=== PATIENT | female | born 1965 | race African-American/Black ===

== ENCOUNTER 2016-07-04 14:25 | Inpatient (IN) | payer SELFPAY ==
--- NOTE | 2016-07-04 14:41 | DR.GENAD ---
HPI - PCP Primary Care Physician: darrick - Complaint/Symptoms Chief Complaint Doctors Comments: Patient is being treated for a conjunctivitis with cipro opthalmic drops. His exam revealed pre septal cellulitis right eye with out restriction in motion. Dr Robles opthalmologist states the patient minimal preseptal cellulitis of the right orbit. No pupillary abnormality Chief Complaint:: patient has a eye infection that has been there since friday. dr robles ( eye doctor ) wanted her to come here to get a periorbital ct. - Source History Provided: Patient - Mode of Arrival Mode of Arrival: Ambulatory - Timing Onset of Chief Complaint: 06/29/16 PMH - PMH Past Medical History: Yes Past Medical History: Diabetes, Hypertension Past Surgical History: Yes Surgical History: Tonsillectomy - Family History History of Family Medical Conditions: Yes Family Medical History: Diabetes Mellitus, [place], Hypertension - Social History Does patient currently use any type of tobacco product: Yes Have you used tobacco products in the last 12 months: Yes Type of Tobacco Use: None Does any household member use tobacco: No Alcohol Use: None Do you use any recreational Drugs:: No Lives With: Family - infectious screening In the last 2 months have you had wt loss of >10#?: NO Have you had fever, night sweats or hemotysis?: No Have you traveled outside the country in the last 6 months?: No Isolation: Standard ROS - Review of Systems Eyes: See HPI ENTM: No Symptoms Reported Respiratoy: No Symptoms Reported Cardiovascular: No Symptoms Reported Gastrointestinal/Abdominal: No Symptoms Reported Genitourinary: No Symptoms Reported Neurological: No Symptoms Reported Musculoskeletal: No Symptoms Reported Integumentary: No Symptoms Reported Hematologic/Lymphatic: No Symptoms Reported Endocrine: No Symptoms Reported Psychiatric: No Symptoms Reported All Other Systems: Reviewed and Negative PE - Vital Signs Vitals: Temperature 98.6 F Pulse Rate 72 Respiratory Rate 18 Blood Pressure [Left Arm] 197/91 Blood Pressure [Right Arm] 235/107 Blood Pressure 178/75 O2 Sat by Pulse Oximetry 100 - General Limitations: No Limitations General Appearance: Alert, In No Apparent Distress - Head Head Exam: Normal Inspection, Atraumatic - Eyes Eye exam: Normal Appearance, PERRL, EOMI, Periorbital Swelling (Right Eye:There is extensive right periorbital subcutaneous edema and peripheral stranding suggestive of cellulitis.The gloves appear symmetrical without significant proptosis or intraorbital inflammatory changes. Extra ocular muscles appear becca. Mimimal mucosal thickening at the 4 of the maxillary sinuses. Imprssion : Extensive right periorbital subcutaneous edema and stranding suggestive of cellulitis. No evidence of intraorbital inflammatory of abnormqality of the right globe.). negative: Periorbital Tenderness - ENT ENT Exam: Normal Exam External Ear Exam: Normal External Inspection TM/Canal Exam: Bilateral Normal Nose Exam: Normal Nose Exam Mouth Exam: Normal Inspection Throat Exam: Normal Inspection - Neck Neck Exam: Normal Inspection - Chest Chest Inspection: Normal Inspection - Respiratory Respiratory Exam: Normal Lung Sounds Bilat Respiratory Exam: Bilateral Clear to Auscultation - Cardiovascular Cardiovascular Exam: Regular Rate, Normal Rhythm - Abdominal Exam Abdominal Exam: Normal Inspection Abdominal Tenderness: negative: RUQ, RLQ, LUQ, LLQ, Epigastrium, Suprapubic, Diffuse, Mild, Moderate, Severe, Other - Extremities Extremities Exam: Normal Inspection, Full ROM - Back Back Exam: Normal Inspection, Full ROM - Neurologic Neurological Exam: Alert, Oriented X3, CN II-XII Intact - Psychiatric Psychiatric Exam: Normal Affect, Normal Mood - Skin Skin Exam: Warm, Dry, Intact Course - Reevaluation 1st: Unchanged - Consultation Called: 16:20 (Agreed to admit for further evaluation) ROR - XRAY XRAY Interpreted by: Radiologist (Extensive right periorbital subcutaneous edema and stranding suggestive of cellulitis. No evidence of intraorbital inflammation or abnormality of the right globe.) - Diagnosis Discharge Problem: Orbital cellulitis, right - Discharge Plan Condition: Stable - Follow ups/Referrals Follow ups/Referrals: CHUY ALCALA [Primary Care Provider] - 3 days - Instructions
--- NOTE | 2016-07-04 16:10 | CT ---
HISTORY: Right eye cellulitis Study: CT orbits without contrast Comparison: None Technique: Multiple axial images of the facial structures were obtained. Dose reduction techniques including Automated Exposure Control (AEC) and adjustment of mA and kV were utilized. Findings: The visualized intracranial structures are unremarkable. There is extensive right periorbital subcut aneous edema and peripheral stranding suggestive of cellulitis. Evaluation for abscess is limited by lack of IV contrast on this exam. The globes appear symmetrical without significant proptosis or in traorbital inflammatory changes. Extra-ocular muscles appear normal. Minimal mucosal thickening at t he 4 of the maxillary sinuses. Otherwise the paranasal sinuses and mastoid air cells are clear. The visualized skull base and cervical spine are normal. IMPRESSION: 1. Extensive right periorbital subcutaneous edema and stranding suggestive of cellulitis. No evidenc e of intraorbital inflammation or abnormality of the right globe. Evaluation for abscess limited by lack of IV contrast. Reported By:
[2016-07-04] MEDS ORDERED: MOTRIN TAB 600 MG PO PRN (17:14)
[2016-07-04] MEDS ORDERED: PHENERGAN TAB 25 MG PO PRN (17:14)
[2016-07-04] MEDS ORDERED: NORCO 7.5/325 MG TAB PO PRN (17:35)
[2016-07-04] MEDS ORDERED: ZOFRAN INJ 4 MG VIAL 16 MG, ATIVAN INJ 2 MG VIAL 1 MG, DECADRON INJ 10 MG in NS 50 ML I... IV PRN (17:35)
--- NOTE | 2016-07-04 17:39 | DR.H&P ---
Addendum entered and electronically signed by KIMBERLY SHAVER 07/05/16 15:34: 51 BLACK FEMALE Original Note: H&P - History & Physical for Day of: H&P Date: 07/04/16 - Chief Complaint Chief Complaint: RIGHT EYE PAIN, SWELLING - Allergies Allergies/Adverse Reactions: Allergies Allergy/AdvReac Type Severity Reaction Status Date / Time Penicillins AdvReac HIVES Verified 07/04/16 14:26 - History of Present Illness History of Present Illness: 51 WF ADMITTED FROM ER AFTER BEING SENT FROM DR STEPHEN MONTES OPT. EXAM WITH LOCALIZED REDNESS, PERORBITAL EDEMA AND MILD REDNESS TO LEFT CONJUCTIVA. PT DENIES ANY INJURY, FEVER, N/V. PLAN TO ADMIT FOR IV ATBX AND PAIN CONTROL - Past Medical History Past Medical History: Diabetes, Hypertension - Past Surgical History Surgical History: Tonsillectomy - Family History Family Medical History: Diabetes Mellitus, [place], Hypertension - Social History Does patient currently use any type of tobacco product: Yes Have you used tobacco products in the last 12 months: Yes Type of Tobacco Use: None Does any household member use tobacco: No Alcohol Use: None - Medications Home Medications: Carvedilol [Coreg Tab 3.125 mg] 25 mg PO BID 07/04/16 [History Confirmed ] - Review of Systems Constitutional: No Symptoms Reported Eyes: Pain, Vision Change, Conjunctivae Inflammation, Eyelid Inflammation, Redness, Other (RIGHT PERIORBITAL EDEMA) ENT: Nose Discharge Respiratory: No Symptoms Reported Cardiovascular: No Symptoms Reported Gastrointestinal: No Symptoms Reported Genitourinary: No Symptoms Reported Musculoskeletal: No Symptoms Reported Skin: No Symptoms Reported Neurological: No Symptoms Reported Oriented: Normal Eyes: Discharge, Pain, Redness Ear: Normal Nose: Normal Throat: Normal Respiratory: Clear Throughout Cardiovascular: Normal : Normal Auscultation: Bowel Sounds: Normal Palpation: Normal Tenderness: Normal Skin: Red (SEE EYE, RIGHT PERIORBITAL CELLULITIS), Tender Musculoskeletal: Normal Mood Description: Calm Speech Pattern: Clear, Appropriate - Assessment/Plan (1) Orbital cellulitis, right Status: Acute Plan: ADMIT, IV ATBX. REPEAT AM LABS (2) Corneal abrasion of both eyes Qualifiers: Encounter type: initial encounter Qualified Code(s): S05.01XA - Injury of conjunctiva and corneal abrasion without foreign body, right eye, initial encounter; S05.02XA - Injury of conjunctiva and corneal abrasion without foreign body, left eye, initial encounter Status: Acute (3) Uncontrolled hypertension Status: Acute Plan: COREG 25MG PO BID CONTINUE, START NORVASC 5MG PO DAILY
[2016-07-04 17:54] LABS: BASOPHILS % (AUTO) 0.1 % (0.2-1.0); EOSINOPHILS # (AUTO) 0.1 x10^3/uL (0.0-0.2); HEMATOCRIT 36.6 % (36.0-47.0); HEMOGLOBIN 11.8 g/dL (12.0-16.0); LYMPHOCYTES # (AUTO) 2.9 X10^3/uL (1.3-2.9); LYMPHOCYTES % (AUTO) 24.8 % (21.0-51.0); MEAN CORPUSCULAR HEMOGLOBIN 28.5 pg (27.0-34.0); MEAN CORPUSCULAR HGB CONC 32.2 g/dL (33.0-35.0); MEAN CORPUSCULAR VOLUME 88.5 fL (80.0-100.0); MEAN PLATELET VOLUME 10.4 fL (7.4-11.0); NEUTROPHILS # (AUTO) 7.8 x10^3/uL (2.2-4.8); NEUTROPHILS % (AUTO) 66.1 % (42.0-75.0); PLATELET COUNT 351 X10^3/uL (150.0-450.0); RED BLOOD COUNT 4.13 X10^6/uL (3.5-5.4); RED CELL DISTRIBUTION WIDTH 14.1 % (11.6-16.5); WHITE BLOOD COUNT 11.9 X10^3/uL (3.6-10.0)
[2016-07-04 18:06] LABS: ALANINE AMINOTRANSFERASE 21 Units/L (12-78); ALBUMIN 3.6 g/dL (3.4-5.0); ALKALINE PHOSPHATASE 82 Units/L (46-116); ASPARTATE AMINO TRANSFERASE 15 Units/L (15-37); BLOOD UREA NITROGEN 13 mg/dL (7-18); CALCIUM 8.8 mg/dL (8.5-10.1); CARBON DIOXIDE 27.6 mmol/L (21-32); CHLORIDE 105 mmol/L (98-107); COR NA(FOR HYPERGLY) 145 mmol/L (136-145); CREATININE 0.79 mg/dL (0.55-1.02); GLUCOSE 199 mg/dL (65-99); SODIUM 143 mmol/L (136-145); TOTAL PROTEIN 8.4 g/dL (6.4-8.2); eGFR BLACK RACES > 60 (>60); eGFR NON BLACK RACES > 60 (>60)
[2016-07-04] MEDS ORDERED: NS 1/2 1000 ML IV 1,000 ML IV ONE (20:47)
[2016-07-04] MEDS: COREG TAB 25 MG PO SCH (20:56)
[2016-07-04] MEDS: NORVASC TAB 5 MG PO SCH (20:56)
[2016-07-04] MEDS: NS 1/2 1000 ML IV 1,000 ML IV SCH (20:57)
[2016-07-04] MEDS ORDERED: COREG TAB 3.125 MG PO SCH (21:00)
[2016-07-04] MEDS ORDERED: CLEOCIN 300 MG IV PREMIX 300 MG/50 ML BAG IV ONE (21:04)
[2016-07-04] MEDS: CLEOCIN VIAL 600 MG 300 MG in D5W 50 ML IV 50 ML IV SCH (21:10)
[2016-07-05] MEDS: NS 1/2 1000 ML IV 1,000 ML IV SCH ×4 (02:25→21:06)
[2016-07-05] MEDS ORDERED: CLEOCIN 300 MG IV PREMIX 300 MG/50 ML BAG IV ONE (02:36)
[2016-07-05] MEDS ORDERED: NS 1/2 1000 ML IV 1,000 ML IV ONE ×2 (05:14→15:03)
[2016-07-05] MEDS: CLEOCIN VIAL 600 MG 300 MG in D5W 50 ML IV 50 ML IV SCH ×3 (05:21→21:06)
[2016-07-05 06:28] LABS: ALANINE AMINOTRANSFERASE 18 Units/L (12-78); ALBUMIN 3.1 g/dL (3.4-5.0); ALKALINE PHOSPHATASE 73 Units/L (46-116); ASPARTATE AMINO TRANSFERASE 13 Units/L (15-37); BLOOD UREA NITROGEN 10 mg/dL (7-18); CALCIUM 8.2 mg/dL (8.5-10.1); CARBON DIOXIDE 28.1 mmol/L (21-32); CHLORIDE 106 mmol/L (98-107); COR CA(FOR HYPOALB) 8.9 mg/dL (8.5-10.1); COR NA(FOR HYPERGLY) 144 mmol/L (136-145); CREATININE 0.69 mg/dL (0.55-1.02); GLUCOSE 140 mg/dL (65-99); SODIUM 143 mmol/L (136-145); TOTAL PROTEIN 7.5 g/dL (6.4-8.2); eGFR BLACK RACES > 60 (>60); eGFR NON BLACK RACES > 60 (>60)
[2016-07-05 07:10] LABS: BASOPHILS % (AUTO) 0.3 % (0.2-1.0); EOSINOPHILS # (AUTO) 0.2 x10^3/uL (0.0-0.2); EOSINOPHILS % (AUTO) 1.4 % (0.9-2.9); HEMATOCRIT 32.5 % (36.0-47.0); HEMOGLOBIN 10.7 g/dL (12.0-16.0); LYMPHOCYTES # (AUTO) 3.7 X10^3/uL (1.3-2.9); LYMPHOCYTES % (AUTO) 29.7 % (21.0-51.0); MEAN CORPUSCULAR HEMOGLOBIN 28.8 pg (27.0-34.0); MEAN CORPUSCULAR HGB CONC 32.9 g/dL (33.0-35.0); MEAN CORPUSCULAR VOLUME 87.5 fL (80.0-100.0); MEAN PLATELET VOLUME 10.5 fL (7.4-11.0); MONOCYTES # (AUTO) 0.9 x10^3/uL (0.3-0.8); MONOCYTES % (AUTO) 7.6 % (0.0-13.0); NEUTROPHILS # (AUTO) 7.6 x10^3/uL (2.2-4.8); PLATELET COUNT 322 X10^3/uL (150.0-450.0); RED BLOOD COUNT 3.71 X10^6/uL (3.5-5.4); RED CELL DISTRIBUTION WIDTH 14.1 % (11.6-16.5); WHITE BLOOD COUNT 12.4 X10^3/uL (3.6-10.0)
[2016-07-05] MEDS: LEVAQUIN PREMIX IV 750 MG 750 MG/150 ML BAG IV SCH (09:01)
[2016-07-05] MEDS: NORVASC TAB 5 MG PO SCH (09:01)
[2016-07-05] MEDS: COREG TAB 25 MG PO SCH ×2 (09:01→20:58)
[2016-07-05] MEDS ORDERED: ULTRAM PO PRN (10:05)
[2016-07-05] MEDS ORDERED: PAROXETINE HCL PO SCH (10:15)
[2016-07-05] MEDS ORDERED: PATIENT'S HOME MEDICATION (Metformin Hcl [Metformin Hcl] 1,000 MG) PO SCH (10:15)
[2016-07-05 11:18] VITALS: BMI 39.8
[2016-07-05] MEDS ORDERED: PAXIL PO SCH (12:00)
[2016-07-05] MEDS ORDERED: GLUCOPHAGE ONE ×2 (13:03→20:52)
[2016-07-05] MEDS: ZESTRIL TAB 40 MG PO SCH (13:14)
[2016-07-05] MEDS: AMARYL TAB 4 MG PO SCH ×2 (13:14→20:58)
[2016-07-05] MEDS: PAXIL PO SCH (13:15)
[2016-07-05] MEDS: BUSPAR PO SCH ×2 (13:15→20:58)
[2016-07-05] MEDS: NORVASC TAB 10 MG PO SCH (13:15)
[2016-07-05] MEDS: COZAAR PO SCH (13:15)
[2016-07-05] MEDS: GLUCOPHAGE PO SCH ×2 (13:16→20:58)
[2016-07-05] MEDS: VALTREX TAB 1 GM PO SCH (13:16)
[2016-07-05] MEDS: LASIX PO SCH (13:16)
[2016-07-05] MEDS: PROVERA PO SCH (13:16)
[2016-07-05] MEDS: ZOLOFT PO SCH (13:16)
--- NOTE | 2016-07-05 15:41 | PCM.PROG ---
Progress Note - Progress Note for Day of Date: 07/05/16 - Subjective Subjective: R EYE PAIN, R EYE SWOLLEN SHUT. 51 BF ADMITTED ON ONE DAY AGO WITH RIGHT PERIORBITAL CELLULITIS. PLAN TO CONTINUE IV ATBX, IV HYDRATION - Past Medical Family Social History Past Med/Fam/Surg Hx: No changes since H&P Allergies: Allergies Penicillins Adverse Reaction (Verified 07/04/16 14:26) HIVES - Review of Systems ROS: No change since H&P - Vital Signs and I&O's Vital Signs: Temperature 98.2 F Pulse Rate [Right Brachial] 69 Respiratory Rate 20 Blood Pressure [Left Arm] 134/77 Blood Pressure [Right Arm] 168/73 O2 Sat by Pulse Oximetry 100 Intake and Output: Intake & Output 07/03/16 07/04/16 07/05/16 07/06/16 11:59 11:59 11:59 11:59 Intake Total 2049 162 Balance 2049 162 - Physical Exam Oriented: Normal Eyes: Discharge, Pain, Redness Ear: Normal Nose: Normal Throat: Normal Respiratory: Normal Cardiovascular: Normal : Normal Auscultation: Bowel Sounds: Normal Tenderness: Normal Skin: Red (SEE EYE, RIGHT PERIORBITAL CELLULITIS), Tender Musculoskeletal: Normal Mood Description: Calm Speech Pattern: Clear, Appropriate - Laboratory and Diagnostics Result Diagrams: 07/05/16 05:45 07/05/16 05:45 Labs: Laboratory WBC 12.4 X10^3/uL (3.6-10.0) H 07/05/16 05:45 RBC 3.71 X10^6/uL (3.5-5.4) 07/05/16 05:45 Hgb 10.7 g/dL (12.0-16.0) L 07/05/16 05:45 Hct 32.5 % (36.0-47.0) L 07/05/16 05:45 MCV 87.5 fL (80.0-100.0) 07/05/16 05:45 MCH 28.8 pg (27.0-34.0) 07/05/16 05:45 MCHC 32.9 g/dL (33.0-35.0) L 07/05/16 05:45 RDW 14.1 % (11.6-16.5) 07/05/16 05:45 Plt Count 322 X10^3/uL (150.0-450.0) 07/05/16 05:45 MPV 10.5 fL (7.4-11.0) 07/05/16 05:45 Neut % 61.0 % (42.0-75.0) 07/05/16 05:45 Lymph % 29.7 % (21.0-51.0) 07/05/16 05:45 [place] % 7.6 % (0.0-13.0) 07/05/16 05:45 Eos % 1.4 % (0.9-2.9) 07/05/16 05:45 Baso % 0.3 % (0.2-1.0) 07/05/16 05:45 Neut # 7.6 x10^3/uL (2.2-4.8) H 07/05/16 05:45 Lymph # 3.7 X10^3/uL (1.3-2.9) H 07/05/16 05:45 [place] # 0.9 x10^3/uL (0.3-0.8) H 07/05/16 05:45 Eos # 0.2 x10^3/uL (0.0-0.2) 07/05/16 05:45 Baso # 0.0 X10^3/uL (0.0-0.1) 07/05/16 05:45 Absolute Nucleated RBC 0.1 /100WBC 07/05/16 05:45 Sodium 143 mmol/L (136-145) 07/05/16 05:45 Corrected Sodium 144 mmol/L (136-145) 07/05/16 05:45 Potassium 3.3 mmol/L (3.5-5.1) L 07/05/16 05:45 Chloride 106 mmol/L (98-107) 07/05/16 05:45 Carbon Dioxide 28.1 mmol/L (21-32) 07/05/16 05:45 BUN 10 mg/dL (7-18) 07/05/16 05:45 Creatinine 0.69 mg/dL (0.55-1.02) 07/05/16 05:45 Est GFR (MDRD) Af Amer > 60 (>60) 07/05/16 05:45 Est GFR (MDRD) Non-Af > 60 (>60) 07/05/16 05:45 Glucose 140 mg/dL (65-99) H 07/05/16 05:45 Calcium 8.2 mg/dL (8.5-10.1) L 07/05/16 05:45 Corrected Calcium 8.9 mg/dL (8.5-10.1) 07/05/16 05:45 Total Bilirubin 0.20 mg/dL (0.2-1.0) 07/05/16 05:45 AST 13 Units/L (15-37) L 07/05/16 05:45 ALT 18 Units/L (12-78) 07/05/16 05:45 Alkaline Phosphatase 73 Units/L (46-116) 07/05/16 05:45 Total Protein 7.5 g/dL (6.4-8.2) 07/05/16 05:45 Albumin 3.1 g/dL (3.4-5.0) L 07/05/16 05:45 Globulin 4.4 g/dL (2.5-4.5) 07/05/16 05:45 Albumin/Globulin Ratio 0.7 Ratio (1.1-2.1) L 07/05/16 05:45 - Plan (1) Orbital cellulitis, right Status: Acute Plan: IV ATBX. REPEAT AM LABS (2) Corneal abrasion of both eyes Status: Inactive Qualifiers: Encounter type: initial encounter Qualified Code(s): S05.01XA - Injury of conjunctiva and corneal abrasion without foreign body, right eye, initial encounter; S05.02XA - Injury of conjunctiva and corneal abrasion without foreign body, left eye, initial encounter (3) Uncontrolled hypertension Status: Inactive Plan: COREG 25MG PO BID CONTINUE, START NORVASC 5MG PO DAILY (4) Diabetes Status: Acute Qualifiers: Diabetes mellitus type: D Diabetes mellitus complication status: D Diabetes mellitus complication detail: D Diabetic retinopathy severity: D Proliferative retinopathy type: P Diabetes mellitus macular edema: D Diabetes mellitus fci insulin use: D Laterality: L Chronic kidney disease stage: C Plan: SSI
[2016-07-05] MEDS ORDERED: SNACK - Diabetic Appropriate PO SCH (20:00)
[2016-07-05] MEDS ORDERED: ZOCOR TAB 40 MG PO SCH (21:00)
[2016-07-06] MEDS ORDERED: NS 1/2 1000 ML IV 1,000 ML IV ONE (05:55)
[2016-07-06] MEDS: NS 1/2 1000 ML IV 1,000 ML IV SCH ×2 (05:56→10:21)
[2016-07-06] MEDS: CLEOCIN VIAL 600 MG 300 MG in D5W 50 ML IV 50 ML IV SCH ×2 (05:57→13:37)
[2016-07-06 06:13] LABS: BASOPHILS % (AUTO) 0.3 % (0.2-1.0); EOSINOPHILS # (AUTO) 0.1 x10^3/uL (0.0-0.2); EOSINOPHILS % (AUTO) 1.2 % (0.9-2.9); HEMATOCRIT 32.5 % (36.0-47.0); HEMOGLOBIN 10.7 g/dL (12.0-16.0); LYMPHOCYTES # (AUTO) 3.7 X10^3/uL (1.3-2.9); LYMPHOCYTES % (AUTO) 36.8 % (21.0-51.0); MEAN CORPUSCULAR HEMOGLOBIN 28.8 pg (27.0-34.0); MEAN CORPUSCULAR HGB CONC 32.8 g/dL (33.0-35.0); MEAN CORPUSCULAR VOLUME 87.9 fL (80.0-100.0); MEAN PLATELET VOLUME 10.3 fL (7.4-11.0); MONOCYTES # (AUTO) 0.9 x10^3/uL (0.3-0.8); MONOCYTES % (AUTO) 8.8 % (0.0-13.0); NEUTROPHILS # (AUTO) 5.4 x10^3/uL (2.2-4.8); NEUTROPHILS % (AUTO) 52.9 % (42.0-75.0); PLATELET COUNT 311 X10^3/uL (150.0-450.0); RED CELL DISTRIBUTION WIDTH 14.1 % (11.6-16.5); WHITE BLOOD COUNT 10.1 X10^3/uL (3.6-10.0)
[2016-07-06 06:22] LABS: ALBUMIN 2.9 g/dL (3.4-5.0); CREATININE 0.72 mg/dL (0.55-1.02); eGFR BLACK RACES > 60 (>60); eGFR NON BLACK RACES > 60 (>60)
[2016-07-06 06:36] LABS: ALANINE AMINOTRANSFERASE 17 Units/L (12-78); ALKALINE PHOSPHATASE 68 Units/L (46-116); ASPARTATE AMINO TRANSFERASE 15 Units/L (15-37); BLOOD UREA NITROGEN 9 mg/dL (7-18); CALCIUM 8.2 mg/dL (8.5-10.1); CHLORIDE 106 mmol/L (98-107); COR CA(FOR HYPOALB) 9.1 mg/dL (8.5-10.1); GLUCOSE 94 mg/dL (65-99); SODIUM 143 mmol/L (136-145); TOTAL PROTEIN 7.3 g/dL (6.4-8.2)
[2016-07-06] MEDS ORDERED: GLUCOPHAGE ONE (08:50)
[2016-07-06] MEDS: LEVAQUIN PREMIX IV 750 MG 750 MG/150 ML BAG IV SCH (09:09)
[2016-07-06] MEDS: ZESTRIL TAB 40 MG PO SCH (09:10)
[2016-07-06] MEDS: NORVASC TAB 10 MG PO SCH (09:10)
[2016-07-06] MEDS: GLUCOPHAGE PO SCH (09:10)
[2016-07-06] MEDS: LASIX PO SCH (09:11)
[2016-07-06] MEDS: ZOLOFT PO SCH (09:11)
[2016-07-06] MEDS: AMARYL TAB 4 MG PO SCH (09:11)
[2016-07-06] MEDS: COZAAR PO SCH (09:11)
[2016-07-06] MEDS: PAXIL PO SCH (09:11)
[2016-07-06] MEDS: COREG TAB 25 MG PO SCH (09:11)
[2016-07-06] MEDS: VALTREX TAB 1 GM PO SCH (09:12)
[2016-07-06] MEDS: BUSPAR PO SCH (09:12)
[2016-07-06] MEDS: PROVERA PO SCH (09:13)
[2016-07-06 12:09] VITALS: BP 133/69
== END 2016-07-06 15:35 | disposition home or self-care (01) | DRG 122 ==
LOC: ER 14:33 → OBS 17:12 → MED/SURG 07-05 16:40
PROVIDERS: ADMIT Internal Medicine; ATTEND Internal Medicine
DX: H05.011 Cellulitis of right orbit (principal); H02.843 Edema of right eye, unspecified eyelid; S05.01XA Injury of conjunctiva and corneal abrasion without foreign body, right eye, initial encounter; I10 Essential (primary) hypertension; E11.65 Type 2 diabetes mellitus with hyperglycemia; X58.XXXA Exposure to other specified factors, initial encounter
CPT/HCPCS: 36415; 70480; 80053; 85025; 87040; 96365; 99284; A4216; A4222; S0077; J1956